=== PATIENT | female | born 1955 | race Caucasian/White ===

== ENCOUNTER 2025-02-13 08:07 | Emergency (ER) | payer OTHER, SELFPAY ==
[2025-02-13 08:10] VITALS: BP 147/91
[2025-02-13 08:48] VITALS: BMI 36.9
[2025-02-13 09:03] VITALS: BP 125/81
--- NOTE | 2025-02-13 09:11 | ED.GENMED ---
History of Present Illness
General
Chief Complaint: Cardiac Symptoms
Source: patient
Exam Limitations: none
Time Seen by Provider: 02/13/25 09:10
Nursing documentation reviewed up to this point in time: agreed with
History of Present Illness
History of Present Illness:
69-year-old female with history of HTN, HLD, CAD IN, cardiac stents presents for concern for a heart attack with symptoms including increased heartburn and excessive burping. Her symptoms have been for the past 24 hours and during this past night
the heartburn was severe enough to wake her up from sleep. She states the symptoms are similar to what she experienced with her last heart attack. At home her blood pressure was 148/98. She did get significant relief of the heartburn with Tums
and Gaviscon and now has no burning that she had previously but she still feels she is burping a lot and has 'pressure' in her abdomen. She did feel nauseous during the burning sensations but has not vomited. She denies shortness of breath.
She does have a history of GERD for which she used to take medication but has not taken it for years. She is constipated as she is on a semaglutide which she started 3 months ago. She did have a good bowel movement yesterday.
She states she had an elevated bilirubin and recent lab work and has a ultrasound of her abdomen scheduled
Past History
Past History
ED Past Medical History: CAD, GERD, HTN, Hypercholesterolemia and IN
ED Past Surgical History: Cardiac (2 stents) and Orthopedic
Review of Systems
Review of Systems
Allergies reviewed?: Yes
All Other Systems: ROS reviewed and negative except as documented in HPI and ROS
Phy Exam
Physical Exam
Physical Exam:
GENERAL: No acute distress. A&Ox3.
CONSTITUTIONAL: Afebrile.
EYES: clear, conjunctivae normal
ENMT: moist mucus membranes, Pharynx nl
RESPIRATORY: Regular respirations, nonlabored, lungs clear.
CARDIOVASCULAR: Regular rate and rhythm, no murmurs, no rubs.
GI: Soft, nontender, normal BS
MUSCULOSKELETAL: Moves with ease. Well perfused.
SKIN: Warm, dry, pink
PSYCH: Normal mood and affect. Well kept, interactive and appropriate
NEUROLOGIC: Awake, alert and oriented. No focal neurological deficits
Course
Orders/Labs/Results
Orders:
Orders
02/13/25 08:13
Electrocardiogram (*1) Urgent
Reason for Study: Other
Other Reason for Exam: epigastric ABD pain
02/13/25 08:14
EKG- Treatment ONCE
02/13/25 09:46
Complete Blood Count/With Diff Urgent
Comprehensive Metabolic Panel Urgent
Lipase Urgent
02/13/25 11:16
Troponin I Urgent
Abnormal Lab Results
02/13/25
09:46
RBC 5.53 H 10^6/uL
(4.20-5.40)
Hgb 16.2 H g/dL
(12.0-16.0)
Hct 50.1 H %
(37.0-47.0)
MCHC 32.3 L g/dL
(33.0-37.0)
MPV 10.5 H fL
(7.4-10.4)
Glucose 100 H mg/dl
(70-99)
Calcium 10.4 H mg/dl
(8.4-10.2)
Total Bilirubin 2.7 H mg/dl
(0.2-1.3)
02/13/25 09:46
02/13/25 09:46
Vital Signs
Initial and Last Documented VS:
Initial Vital Signs
Temp Pulse Resp BP Pulse Ox
97.7 F 72 18 147/91 95
02/13/25 08:10 02/13/25 08:10 02/13/25 08:10 02/13/25 08:10 02/13/25 08:10
Last Documented Vital Signs
Temp Pulse Resp BP Pulse Ox
97.7 F 65 13 144/84 95
02/13/25 08:10 02/13/25 13:00 02/13/25 13:00 02/13/25 13:00 02/13/25 12:45
MDM/Problems Addressed
Differential Diagnosis Includes:
GERD, ACS, PUD, esophageal spasm, gallbladder disease
MDM/Problems Addressed:
69-year-old female with history of HTN, HLD, CAD [place], cardiac stents presents for concern for a heart attack with symptoms including increased heartburn and excessive burping. Her symptoms have been for the past 24 hours and during this past night
the heartburn was severe enough to wake her up from sleep. She states the symptoms are similar to what she experienced with her last heart attack. At home her blood pressure was 148/98. She did get significant relief of the heartburn with Tums
and Gaviscon and now has no burning that she had previously but she still feels she is burping a lot and has 'pressure' in her abdomen. She did feel nauseous during the burning sensations but has not vomited. She denies shortness of breath.
She does have a history of GERD for which she used to take medication but has not taken it for years. She is constipated as she is on a semaglutide which she started 3 months ago. She did have a good bowel movement yesterday.
She states she had an elevated bilirubin and recent lab work and has a ultrasound of her abdomen scheduled
EKG NSR
CBC with no clinically significant abnormality
CMP with no clinically significant abnormality
Lipase normal
12:45 PM:
Troponin within normal limits
Patient reassured.
Recommend starting omeprazole and follow-up with her PCP
*Pulse Oximetry
SaO2: 97
Oxygen Mode of Delivery: Room air
Patient hypoxic: no
*EKG
EKG Intrepretation Date: 02/13/25
Interpretation: normal
Heart Rate: 71
Rate: normal
Rhythm: sinus
Lamar: normal axis
Interval: normal interval
QRS Pattern: normal QRS
Ischemia: no ischemia
*Critical Care Note
Total Time (30-74mins, 75-104mins- exclusive of procedures): Not Applicable
ED Attending Note
-
Portions of this chart may have been created with voice recognition software.� Occasional wrong word or��sound alike� substitutions may have occurred due to the inherent limitations of voice recognition software.
Discharge Plan
Departure
Patient Disposition: Home (Routine Discharge)
Date of Disposition: 02/13/25
Time of Disposition: 12:46
Patient with high blood pressure during this ER visit?: No
Condition: Good
Discharge Problem:
Chest pain due to GERD
Instructions: Chest Pain (DC), Acid reflux and GERD in adults
Prescriptions:
New
pantoprazole 40 mg tablet,delayed release (DR/EC)
40 mg PO DAILY Qty: 30 0RF
No Action
atorvastatin 40 MG tablet
40 mg PO DAILY
pantoprazole 40 MG tablet,delayed release (DR/EC)
40 mg PO PRN PRN (Reason: indigestion)
aspirin [Kaylee Chewable Aspirin] 81 MG tablet,chewable
81 mg PO DAILY
lisinopril 5 MG tablet
5 mg PO DAILY
chlorpheniramine-acetaminophen 1 TAB tablet
1 tab PO BID
metoprolol tartrate 25 MG tablet
12.5 mg PO BID
ticagrelor [Brilinta] 90 MG tablet
90 mg PO DAILY
Referrals:
Pillo Guerrero MD [Family Provider, Internal Medicine]
Reji Will MD [Active, Gastroenterology] - Next open appointment
Activity Restrictions/Additional Instructions:
As we discussed, your workup here today shows nothing worrisome, specifically no sign of a heart attack.
This may be your GERD acting up, start your pantoprazole 40 mg daily again and use it for at least 2 weeks to see if it helps. Then use it as needed.
I gave you contact information for a GI doctor to use if needed.
I sent a prescription to your pharmacy for the pantoprazole
Interventions
Interventions:
*Risk Screen - Suicide Last Done: 02/13/25 08:10
*General Assessment Last Done: 02/13/25 08:10
*Neglect/Abuse Screening Last Done: 02/13/25 08:10
*ED- Fall Risk Assessment Last Done: 02/13/25 08:48
*ED COVID-19 Vaccine History Last Done: 02/13/25 08:48
*ED Influenza Vaccine History Last Done: 02/13/25 08:48
*Nursing Disposition Last Done: 02/13/25 13:05
ED- Pulmonary Assessment Last Done: 02/13/25 09:04
ED- Cardiac Assessment Last Done: 02/13/25 08:48
Discharge Date and Time
Discharge Date/Time: 02/13/25 13:05
Print Language: PORTUGUESE
[2025-02-13 10:00] VITALS: BP 138/76
[2025-02-13 10:02] LABS: Hematocrit 50.1 % (37.0-47.0); Hemoglobin 16.2 g/dL (12.0-16.0); Mean Corp Hgb Conc. 32.3 g/dL (33.0-37.0); Mean Corpuscular Volume 90.6 fL (81.0-99.0); Nucleated Red Blood Cells % 0 %; Platelet Count 248 10^3/uL (130-400); Red Cell Dist. Width 13.6 % (11.5-14.5)
[2025-02-13 10:16] LABS: ALT (SGPT) 26 U/L (0-35); AST (SGOT) 28 U/L (14-36); Albumin 4.6 g/dl (3.5-5.0); Alkaline Phosphatase 84 U/L (38-126); Blood Urea Nitrogen 17 mg/dl (7-17); Calcium 10.4 mg/dl (8.4-10.2); Carbon Dioxide 27 mmol/L (22-30); Chloride 105 mmol/L (98-107); Estimated Creatinine Clearance 67 ml/min; Glucose 100 mg/dl (70-99); Lipase 91 U/L (23-300); Potassium 4.5 mmol/L (3.5-5.1); Sodium 137 mmol/L (135-145); Total Protein 7.5 g/dl (6.3-8.2); eGFR > 60.00
[2025-02-13 11:00] VITALS: BP 148/69
[2025-02-13 12:00] VITALS: BP 129/73
[2025-02-13 12:09] LABS: Troponin I < 0.012 ng/ml
[2025-02-13 13:00] VITALS: BP 144/84
== END 2025-02-13 13:05 | disposition home or self-care (01) ==
LOC: EMR 08:07
PROVIDERS: Registered Nurse; EMERGENCY PHYSICIAN Emergency Medicine; FAMILY PHYSICIAN Internal Medicine
DX: K21.9 Gastro-esophageal reflux disease without esophagitis (principal); I25.10 Atherosclerotic heart disease of native coronary artery without angina pectoris; I10 Essential (primary) hypertension; E78.00 Pure hypercholesterolemia, unspecified; I25.2 Old myocardial infarction; Z95.5 Presence of coronary angioplasty implant and graft
CPT/HCPCS: 99284; 80053; 83690; 84484; 85025; 93005